=== PATIENT | male | born 1975 | race Caucasian/White ===

== ENCOUNTER 2016-06-28 09:07 | Emergency (ER) ==
[2016-06-28] MEDS ORDERED: TORADOL IM ONE (09:42)
[2016-06-28] MEDS ORDERED: NORFLEX IM ONE (09:42)
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
--- NOTE | 2016-06-28 12:39 | Diag Imaging Result Document ---
PROCEDURE NAME: CERVICAL SPINE COMPLETE - 06/28/2016 CERVICAL SPINE, 7 VIEWS: FINDINGS: There is no fracture identified. There is no subluxation seen. There is little air in the pharynx on the upright lateral view, but there is more air in the pharynx on the cross-table lateral view, which shows no obvious precervical soft tissue swelling. IMPRESSION: No evidence of fracture or subluxation.
--- NOTE | 2016-06-28 12:55 | Diag Imaging Result Document ---
PROCEDURE NAME: LUMBAR SPINE - 06/28/2016 LUMBAR SPINE, 6 VIEWS: FINDINGS: There are mild multilevel degenerative changes with small anterior osteophytes. There is no fracture identified. There is no subluxation seen. IMPRESSION: Mild degenerative changes. No evidence of fracture or subluxation.
[2016-06-28] MEDS ORDERED: NORCO-7.5 PO ONE (12:56)
--- NOTE | 2016-06-28 12:57 | Diag Imaging Result Document ---
PROCEDURE NAME: THORACIC SPINE - 06/28/2016 THORACIC SPINE, 2 VIEWS: FINDINGS: There is multilevel spondylosis with primarily small anterior osteophytes. There is mild smooth loss of height of a couple of midthoracic vertebral bodies, suggesting chronic change. There is no fracture or subluxation identified. IMPRESSION: Mild degenerative changes. No evidence of fracture or subluxation. If occult injury is strongly suspected clinically, CT scan or MRI could be considered.
--- NOTE | 2016-06-28 12:58 | Diag Imaging Result Document ---
PROCEDURE NAME: HIP 1 VIEW RIGHT - 06/28/2016 AP RIGHT HIP, 1 VIEW: FINDINGS: There is no fracture identified. There is no dislocation identified. IMPRESSION: No evidence of fracture or dislocation. If occult injury is strongly suspected clinically, a complete 3-view exam or CT scan could be considered.
--- NOTE | 2016-06-28 13:26 | Diag Imaging Result Document ---
PROCEDURE NAME: XRAY HIP UNILATERAL LT - 06/28/2016 LEFT HIP, TWO VIEWS: FINDINGS: There has been extensive prior orthopedic surgery to the left hip and femur. No acute fracture or dislocation. IMPRESSION: No acute bony injury.
[2016-06-28 14:05] VITALS: BP 165/97
== END 2016-06-28 14:05 | disposition home or self-care (01) ==
LOC: EDBD → ED 09:07
DX: M62.830 Muscle spasm of back (principal); M25.552 Pain in left hip; M54.5 Low back pain; M54.6 Pain in thoracic spine; M54.2 Cervicalgia; K21.9 Gastro-esophageal reflux disease without esophagitis; F17.210 Nicotine dependence, cigarettes, uncomplicated; Z71.6 Tobacco abuse counseling; Z96.642 Presence of left artificial hip joint; V53.6XXA Passenger in pick-up truck or van injured in collision with car, pick-up truck or van in traffic accident, initial encounter
CPT/HCPCS: 72050; 72072; 72110; 96372; J1885; J2360